=== PATIENT | male | born 1955 | race Caucasian/White ===

== ENCOUNTER 2017-10-05 20:41 | Observation (INO) | payer OTHER ==
[2017-10-05 21:17] LABS: #Basophils 0.1 thou/uL (0.0-0.2); #Eosinphils 0.4 thou/uL (0.0-0.7); #Lymphocytes 2.7 thou/uL (1.20-3.40); #Monocytes 0.7 thou/uL (0.11-0.59); #Neutrophils 6.9 thou/uL (1.40-6.50); %Basophils 0.8 % (0.0-1.0); %Eosinophils 3.3 % (0.0-10.0); %Monocytes 6.3 % (0.0-10.0); %Neutrophils 64.5 % (42.0-75.0); Hemoglobin 13.1 g/dL (14.0-18.0); Mean Corpuscular HGB CONC 34.6 g/dL (32.0-36.0); Mean Corpuscular Hemoglobin 32.4 pg (27.0-31.0); Mean Corpuscular Volume 93.6 fl (80.0-94.0); Mean Platelet Volume 8.7 fL (7.4-10.4); Platelet Count 197 thou/uL (130-400); RBC Distribution Width 12.2 % (11.5-14.5); Red Blood Cell (RBC) Count 4.03 mill/uL (4.70-6.10); White Blood Cell (WBC) Count 10.7 thou/uL (4.8-10.8)
[2017-10-05 21:23] LABS: INR-International Normal Ratio 1.1; PTT 24.6 SEC (22.9-36.1); Prothrombin Time 13.9 SEC (12.0-14.7)
[2017-10-05 21:41] LABS: Anion Gap 12 mmol/L (10-20); BUN (Urea Nitrogen) 15 mg/dL (8.4-25.7); Calc. Creatinine Clearance 0 mL/min (70-130); Calcium 9.1 mg/dL (7.8-10.44); Carbon Dioxide 23 mmol/L (23-31); Chloride 109 mmol/L (98-107); Estimated GFR-MDRD 70; Glucose 133 mg/dL (80-115); Sodium 140 mmol/L (136-145)
[2017-10-05] MEDS ORDERED: Morphine 4 MG/ML VIAL ONE (22:18)
--- NOTE | 2017-10-05 22:46 | RAD ---
RADIOGRAPH LEFT FOOT 3 VIEWS: Date: 10/05/17 Time: 9:49 p.m. HISTORY: 62-year-old male status post industrial accident with traumatic injury to the foot. FINDINGS: Comminuted fracture of first proximal phalanx, with significant displacement. Mild displacement of ob lique fracture at medial base of second proximal phalanx. Transverse fracture of neck of second proxi mal phalanx, with inferior displacement. Nondisplaced oblique fracture at medial base of the third pr oximal phalanx. Comminuted, significantly displaced fracture, with intra-articular component, of thir d middle phalanx, with widening of the third PIP joint space. Fracture of fourth middle phalanx. Over lying bandages obscure fine bony detail, and there may be additional fractures that are poorly visual ized. IMPRESSION: Multiple acute, traumatic, displaced fractures of proximal and middle phalanges of multiple left toes . POS: BILL
--- NOTE | 2017-10-06 00:19 | HP ---
REQUESTING PHYSICIAN: Princess Gillespie MD ATTENDING SURGEON: Suresh Mccarty MD CONSULTATIONS: Orthopedics, Dr. Morales. 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 The patient was wearing steel-toed boots, but unfortunately the steel toe was crushed and caused significant injury to his toes. The patient was brought to the emergency department, evaluated, examined, and noted to have left foot near forefoot amputation, which time we were asked to evaluate the patient for admission and obtain orthopedic consultation. ALLERGIES: None. CURRENT MEDICATIONS: Carvedilol, sertraline, naproxen, Brilinta, lisinopril, omeprazole, isosorbide dinitrate. PAST MEDICAL HISTORY: Hypertension, depression. PAST SURGICAL HISTORY: Cardiac stent x1, open reduction internal fixation of right forearm fracture. SOCIAL HISTORY: The patient currently dips tobacco. Denies smoking tobacco. Has not had alcohol in over 5 years. 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 FAMILY MEDICAL HISTORY: Significant for hypertension, coronary artery disease. REVIEW OF SYSTEMS: Ten-point review of systems is negative unless otherwise stated. PHYSICAL EXAMINATION: GENERAL: Vital Signs: BP 139/73, Pulse 69, Respirations 20, Temperature 97.9. The patient is resting comfortably in the emergency room bed. He is alert and oriented x3. Mertens coma scale is 15. HEENT: Unremarkable. Head is normocephalic, atraumatic. Eyes, extraocular motion intact. PERRLA bilaterally. Ears are atraumatic without discharge. Nose is atraumatic without discharge. Oropharynx is clear. NECK: Nontender. Trachea is midline. No JVD. CHEST: Clear to auscultation with good inspiratory and expiratory effort. HEART: Regular rate and rhythm. ABDOMEN: Soft, flat, nontender with positive bowel sounds. PELVIS: Stable. EXTREMITIES: Bilateral upper extremities are neurovascularly intact, showed full active range of motion. No evidence of trauma. Right lower extremity also shows no evidence of trauma and is neurovascularly intact. Left lower extremity is currently bandaged of the foot. The patient has posterior tibial and dorsalis pedis pulses. Due to the bleeding from the patient's antiplatelet , his dressing was not taken down, but the emergency room physician describes partial amputations of the second and third digits, deformity of the great toe. BACK: Atraumatic and nontender. LABORATORY FINDINGS: White blood cell count 10.7, hemoglobin 13.1, hematocrit 37.7, platelets 197. Sodium 140, potassium 4, chloride 109, CO2 of 23, BUN 15, creatinine 1.07, glucose 133. PTT 25, PT 14, INR 1.1. RADIOGRAPHIC REPORT: Left foot shows comminuted and displaced fractures of all toes and significant soft tissue injury. ASSESSMENT: 1. Status post partial amputations of multiple left toes. 2. Pain secondary to acute trauma. 3. History of antiplatelet use. 4. History of hypertension. 5. Hyperglycemia. PLAN: Plan will be to admit the patient to the surgical floor; make him n.p.o. after midnight; pain control; blood pressure control; glucose control; pulmonary toilet; gastritis and mechanical DVT prophylaxis; antibiotics per ortho, 2 grams of Ancef q.8 hours. The patient is up-to-date on his tetanus. He just received that within the last 90 days for a laceration. The evaluation , examination, radiographic and laboratory findings were discussed with Dr. Mccarty and with Dr. Morales, who will take the patient to the operating room tomorrow. SISSY
[2017-10-06] MEDS ORDERED: HYDROcodone/Acetaminophen 10/325 mg Tablet PO PRN ×2 (00:22)
[2017-10-06] MEDS ORDERED: Morphine 5 MG/ML SYRINGE IVP PRN ×2 (00:22)
[2017-10-06] MEDS ORDERED: Carvedilol 3.125 MG TAB PO SCH (00:22)
[2017-10-06] MEDS ORDERED: Ondansetron HCl/PF 4 MG/2 ML Vial IVP PRN ×2 (00:22→15:54)
[2017-10-06] MEDS ORDERED: Dextrose 50% Abboject 50 ML SYRINGE SLOW IVP PRN (00:22)
[2017-10-06] MEDS ORDERED: Ondansetron ODT 4 MG TAB PO PRN (00:22)
[2017-10-06] MEDS ORDERED: hydrALAZINE 20 MG/ML VIAL SLOW IVP PRN (00:22)
[2017-10-06] MEDS ORDERED: Dextrose 5% in Water 1,000 ML IV PRN (00:22)
[2017-10-06] MEDS ORDERED: Ketorolac Tromethamine 30 MG/ML VIAL IVP SCH (00:45)
[2017-10-06] MEDS: Sodium Chloride 0.9% 1,000 ML IV SCH ×3 (02:29→17:09)
[2017-10-06 02:38] VITALS: BMI 31.5
[2017-10-06 04:22] LABS: #Eosinphils 0.3 thou/uL (0.0-0.7); #Lymphocytes 3.2 thou/uL (1.20-3.40); #Monocytes 0.7 thou/uL (0.11-0.59); #Neutrophils 6.2 thou/uL (1.40-6.50); %Basophils 0.4 % (0.0-1.0); %Eosinophils 2.9 % (0.0-10.0); %Lymphocytes 30.4 % (21.0-51.0); %Monocytes 7.1 % (0.0-10.0); %Neutrophils 59.1 % (42.0-75.0); Hemoglobin 11.8 g/dL (14.0-18.0); Mean Corpuscular HGB CONC 34.7 g/dL (32.0-36.0); Mean Corpuscular Hemoglobin 32.9 pg (27.0-31.0); Mean Corpuscular Volume 94.8 fl (80.0-94.0); Mean Platelet Volume 8.7 fL (7.4-10.4); Platelet Count 169 thou/uL (130-400); RBC Distribution Width 12.3 % (11.5-14.5); Red Blood Cell (RBC) Count 3.58 mill/uL (4.70-6.10); White Blood Cell (WBC) Count 10.4 thou/uL (4.8-10.8)
[2017-10-06 04:29] LABS: Anion Gap 11 mmol/L (10-20); BUN (Urea Nitrogen) 16 mg/dL (8.4-25.7); Calc. Creatinine Clearance 95 mL/min (70-130); Calcium 8.7 mg/dL (7.8-10.44); Carbon Dioxide 26 mmol/L (23-31); Chloride 109 mmol/L (98-107); Estimated GFR-MDRD 66; Glucose 125 mg/dL (80-115); Potassium 4.4 mmol/L (3.5-5.1); Sodium 142 mmol/L (136-145)
[2017-10-06] MEDS: Ketorolac Tromethamine 30 MG/ML VIAL IVP SCH ×3 (06:37→17:12)
[2017-10-06] MEDS: CEFAZOLIN/Water 2 GM/20 ML SYRINGE SLOW IVP SCH ×3 (06:38→21:06)
[2017-10-06] MEDS: Famotidine 20 MG TAB PO SCH ×2 (08:51→21:05)
[2017-10-06] MEDS: Carvedilol 3.125 MG TAB PO SCH ×3 (08:51→21:11)
[2017-10-06] MEDS ORDERED: CEFAZOLIN/Water 2 GM/20 ML SYRINGE SLOW IVP SCH (09:15)
[2017-10-06] MEDS ORDERED: Sodium Chloride 0.9% 500 ML IVPB SCH (09:15)
--- NOTE | 2017-10-06 09:49 | CON ---
DATE OF CONSULTATION: 10/06/2017 REQUESTING PHYSICIAN: Dr. Mccarty CONSULTING PHYSICIAN: Dr. Morales REASON FOR CONSULTATION: Left foot traumatic industrial crush injury. 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 He was wearing steel toed boots at the time of the injury. He was brought to the [facility] for further evaluation. Unfortunately, the steel toe was crushed and caused significant injury to his toes. He was noted to have a near ray amputation. We have been consulted for this reason. ALLERGIES: No known drug allergies. CURRENT MEDICATIONS: Carvedilol, sertraline, Naprosyn, Brilinta, lisinopril, omeprazole, and isosorbide dinitrate. PAST MEDICAL HISTORY: Hypertension and depression. PAST SURGICAL HISTORY: Cardiac stent x1, open reduction internal fixation of right forearm fracture, and partial fingertip amputation to the right hand fifth digit. SOCIAL HISTORY: The patient currently dips tobacco. Denies smoking tobacco. He has not had alcohol in multiple years. 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 The patient lives at home with his and dogs. FAMILY HISTORY: Noncontributory. REVIEW OF SYSTEMS: Ten point review of systems otherwise negative except for stated above. PHYSICAL EXAMINATION: VITAL SIGNS: Temperature of 97.6, pulse of 67, respiratory rate of 14, blood pressure 146/90. GENERAL: The patient is awake and alert. He is lying comfortably in his bed on [place] floor. He is awake, alert, and oriented x3. No acute distress. HEENT: Normocephalic, atraumatic. NECK: Supple. LUNGS: Nonlabored breathing. EXTREMITIES: The patient has a wrap present to his left foot with an overlying Marcus bandage. This appears saturated. Ankle and lower leg unaffected. No signs of swelling or skin injury. The patient has full range of motion in his ankle and his knee. Remainder of the extremity exam is otherwise unremarkable. No other injuries are noted. NEUROLOGIC: No focal deficits. LABORATORY FINDINGS: White blood cell count of 10.7, hemoglobin 13.1, hematocrit 37.7, platelets 197. RADIOGRAPHIC FINDINGS: Including x-rays of the left foot which were reviewed by me shows a comminution and displaced multiple fractures of all toes and significant soft tissue injury. ASSESSMENT: Status post traumatic injury to the left foot with multiple displaced and comminuted fractures and partial amputations. PLAN: Radiographic findings and plan of care discussed with the patient today at bedside. He has multiple injuries to what appears to be all digits of the left foot. Radiographic findings and plan of care were discussed at length with Dr. Morales as well. We plan to take the patient to the operating room this afternoon for emergent incision and drainage with washout including salvage of viable tissue. The patient may undergo percutaneous pinning versus ORIF versus amputation. He verbalized understanding of this. Risks, benefits, and alternatives were also discussed at length. We will obtain consent. All questions have been answered. We will proceed with surgery this afternoon. SISSY
[2017-10-06] MEDS ORDERED: Midazolam HCl 2 mg/2 ml Vial ONE (13:34)
[2017-10-06] MEDS ORDERED: Fentanyl 250 MCG/5 ML VIAL ONE (13:34)
[2017-10-06] MEDS ORDERED: Neomycin-Polymyxin 1 ML AMP ONE (13:36)
[2017-10-06] MEDS ORDERED: CEFAZOLIN/Water 2 GM/20 ML SYRINGE ONE (13:51)
[2017-10-06] MEDS ORDERED: Ondansetron HCl/PF 4 MG/2 ML Vial ONE (15:15)
[2017-10-06] MEDS ORDERED: Propofol 200 MG/20 ML VIAL ONE (15:15)
[2017-10-06] MEDS ORDERED: Lidocaine 1% PF 5 ML VIAL ONE (15:15)
[2017-10-06] MEDS ORDERED: Ketorolac Tromethamine 30 MG/ML VIAL ONE (15:15)
[2017-10-06] MEDS ORDERED: Glycopyrrolate 0.2 MG/ML 5 ML SYRINGE ONE (15:15)
--- NOTE | 2017-10-06 15:48 | OP ---
DATE OF PROCEDURE: 10/06/2017 OPERATION: Left foot second and third toe amputation, percutaneous pin fixation with open reduction of first proximal phalanx fracture, wound closure, left foot. PREOPERATIVE DIAGNOSES: Left foot crush injury with multiple phalanx fractures, open wounds nonviabl e second and third toes, fracture of the first proximal phalanx. POSTOPERATIVE DIAGNOSES: Left foot crush injury with multiple phalanx fractures, open wounds nonviab le second and third toes, fracture of the first proximal phalanx. COMPLICATIONS: None. ESTIMATED BLOOD LOSS: Minimal. SURGEON: Jordin Morales M.D. ANESTHESIA: General. WATCH AND CLOCK MAKER AND REPAIRER: Cheikh Harrison PA-C. INDICATIONS: Mr. Driscoll is a 62-year-old male who crushed his forefoot with a steel rail. He was i ndicated for surgery to eradicate contamination and hopefully prevent infection. We also planned to reduce his first toe fracture as well as amputate the second and third toes because they are nonviabl e. He is aware of risks and benefits. He is aware of prolonged recovery process. He wants to proce ed with the operation. DESCRIPTION OF PROCEDURE: Mr. Driscoll was identified in the preoperative holding area. His correct extremity was marked. He was carried to the operating room. He was positioned supine. General anes thesia was induced. A multidisciplinary timeout was performed. The left foot was prepped and draped in sterile fashion. We began the procedure with evaluation and exploration of the wounds. We removed significant hematom a tissue. We thoroughly irrigated with copious lavage. We trimmed the skin edges. We determined th at the second and third toes were nonviable. They were dusky in appearance and there were no neurova scular structures intact to these toes. These were amputated at the MTP joint. At this point, we ev aluated the proximal phalanx of the great toe. This was reduced with a reduction clamp. We then kerrie deb a 0.062 K-wire from the distal aspect of the toe down through the MTP joint to reduce the toe and hold it in its anatomic position, took x-ray images confirming this. Again, we thoroughly irrigated with copious lavage. We performed a final excisional debridement using a knife. We then closed wit h nylon sutures in interrupted fashion. All wounds were closed as well as the flap near the amputati ons. At this point, we placed a sterile dressing, which was well padded in a splint. The patient was take n to the recovery room in good condition without complication. IMPLANTS: A single K-wire was used.
[2017-10-06] MEDS ORDERED: Meperidine HCl/PF 25 MG/ML VIAL SLOW IVP PRN (15:54)
[2017-10-06] MEDS ORDERED: HYDROmorphone 2 MG/ML VIAL SLOW IVP PRN (15:54)
[2017-10-06] MEDS ORDERED: Promethazine HCl 25 MG/ML VIAL SLOW IVP PRN (15:54)
[2017-10-06] MEDS ORDERED: Promethazine HCl 25 MG/ML VIAL IM PRN (15:54)
[2017-10-06] MEDS ORDERED: Morphine Sulfate 2 MG/ML SYRINGE SLOW IVP PRN (15:54)
--- NOTE | 2017-10-06 21:15 | PRG ---
DATE OF SERVICE: 10/06/2017 ATTENDING PHYSICIAN: Dr. Carlos Mesa. SUBJECTIVE: Mr. 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 He had been wearing steel-toe d boots, but the steel-toed was crushed and caused a significant injury to his toes. He was found to have a crush injury to his left foot with multiple phalanx fractures, open wounds with possible nonv iable toes. He was admitted by trauma services with Orthopedic Surgery consultation. He is schedule d to go to the OR today with Dr. Jordin Morales. The patient is currently stable on the [facility] floor. His left foot is dressed and does appear to be bleeding somewhat. OBJECTIVE: VITAL SIGNS: Blood pressure 146/90, pulse 67, temperature 97.6, respirations 14, O2 sat 96% on room air. GENERAL APPEARANCE: The patient is a middle-aged adult male, in no acute distress. HEENT: Normocephalic and atraumatic. RESPIRATORY: His breath sounds are clear to auscultation bilaterally with normal effort. CARDIOVASCULAR: He has a regular rate and rhythm with no murmurs, gallops or rubs. ABDOMEN: Soft, flat, nontender with normal bowel sounds. EXTREMITIES: He has a dressing in place on his left foot. There is a moderate amount of sanguineous drainage from his wound. LABORATORY DATA: Hematology: WBC is 10.4, hemoglobin 11.8, hematocrit 33.9, platelets 169. Cardiac Cath Technician ry: Sodium 142, potassium 4.4, chloride 109, bicarbonate 26, BUN 16, creatinine 1.12, glucose 125, c alcium 8.7. CK 121. IMAGING: There are no images to review today. ASSESSMENT: 1. Crush injury to left foot with multiple phalanx fractures and a partial amputation of several lef t toes. 2. Acute traumatic pain. 3. History of hypertension, present on admission. 4. History of antiplatelet use. 5. History of hyperglycemia. PLAN: 1. Patient will go to the OR today with Dr. Jordin Morales. 2. Postoperatively, we will initiate a gastritis prophylaxis and pulmonary toileting. 3. Optimize pain control. 4. Antibiotics per Orthopedic Surgery recommendations. 5. Patient will need help mobilizing with PT and OT. This patient was seen and examined along with Dr. Carlos Msea who agrees with the assessment and pl an.
[2017-10-06] MEDS ORDERED: Cyclobenzaprine 10 MG TAB PO PRN (22:01)
--- NOTE | 2017-10-06 22:19 | PRG ---
DATE OF SERVICE: 10/06/2017 SUBJECTIVE: The patient is hospital day 2, postop day 0 from blunt injury to his left foot. The pat ient underwent irrigation and debridement and amputation of his second and third left toes today in a ddition to percutaneous pinning of the great toe. The patient tolerated this procedure well and is c urrently on the surgical floor. He is tolerating a diet. His pain is controlled. Denies any nausea . OBJECTIVE: VITAL SIGNS: Temperature is 98.4, heart rate 69, blood pressure 122/73, respirations 18, oxygen satu ration 97% on room air. GENERAL: Patient is alert and oriented x3. Higbee coma scale is 15. RESPIRATIONS: Nonlabored. EXTREMITIES: Postoperative dressing is clean, dry, and intact. The patient is neurovascularly intac t in all extremities. ASSESSMENT AND PLAN: 1. Crush injury to left foot. 2. Status post percutaneous pinning of left great toe, amputation of second and third toes of left f oot. PLAN: Will be to continue pain management. Supportive care, physical, and occupational therapy, and possibly home tomorrow if the patient progresses and his pain is controlled on p.o. medications.
[2017-10-07] MEDS: Ketorolac Tromethamine 30 MG/ML VIAL IVP SCH ×3 (01:05→12:08)
[2017-10-07] MEDS: Sodium Chloride 0.9% 1,000 ML IV SCH ×2 (02:53→12:21)
[2017-10-07] MEDS: CEFAZOLIN/Water 2 GM/20 ML SYRINGE SLOW IVP SCH ×2 (05:56→15:04)
[2017-10-07] MEDS: Carvedilol 3.125 MG TAB PO SCH (08:22)
[2017-10-07] MEDS: Famotidine 20 MG TAB PO SCH (08:22)
[2017-10-07] MEDS ORDERED: Lisinopril 10 MG TAB PO SCH (09:00)
[2017-10-07 09:02] LABS: #Eosinphils 0.4 thou/uL (0.0-0.7); #Monocytes 0.5 thou/uL (0.11-0.59); #Neutrophils 5.8 thou/uL (1.40-6.50); %Basophils 0.5 % (0.0-1.0); %Eosinophils 4.4 % (0.0-10.0); %Lymphocytes 23.2 % (21.0-51.0); %Monocytes 5.5 % (0.0-10.0); %Neutrophils 66.5 % (42.0-75.0); Hemoglobin 10.4 g/dL (14.0-18.0); Mean Corpuscular HGB CONC 34.5 g/dL (32.0-36.0); Mean Corpuscular Hemoglobin 32.8 pg (27.0-31.0); Mean Corpuscular Volume 94.9 fl (80.0-94.0); Mean Platelet Volume 8.7 fL (7.4-10.4); Platelet Count 156 thou/uL (130-400); RBC Distribution Width 12.2 % (11.5-14.5); Red Blood Cell (RBC) Count 3.16 mill/uL (4.70-6.10); White Blood Cell (WBC) Count 8.7 thou/uL (4.8-10.8)
[2017-10-07 09:22] LABS: Anion Gap 11 mmol/L (10-20); BUN (Urea Nitrogen) 13 mg/dL (8.4-25.7); Calc. Creatinine Clearance 97 mL/min (70-130); Calcium 8.7 mg/dL (7.8-10.44); Carbon Dioxide 25 mmol/L (23-31); Chloride 105 mmol/L (98-107); Estimated GFR-MDRD 68; Glucose 193 mg/dL (80-115); Magnesium 1.9 mg/dL (1.6-2.6); Phosphorus 3.4 mg/dL (2.3-4.7); Sodium 137 mmol/L (136-145)
[2017-10-07] MEDS ORDERED: traMADol HCl 50 MG TAB PO PRN (10:25)
[2017-10-07] MEDS ORDERED: traMADol HCl 50 MG TAB PO SCH (10:30)
[2017-10-07] MEDS ORDERED: Acetaminophen 500 MG TAB PO SCH (10:30)
[2017-10-07 11:56] VITALS: BP 145/74; TEMP 98.5
[2017-10-07] MEDS ORDERED: Ibuprofen 600 MG TAB PO PRN (12:12)
--- NOTE | 2017-10-07 15:09 | RAD ---
TWO INTRAOPERATIVE IMAGES OF THE LEFT TOES: 10/06/2017 HISTORY: Trauma. Surgery. FINDINGS: Two intraoperative images of the left toes demonstrate amputation of the second and third toes, at th e level of the metatarsophalangeal joints. There is a percutaneous pin traversing the distal phalanx , proximal phalanx, and head of the metatarsal, at the level of the great toe. There is an obliquely oriented, comminuted fracture involving the first proximal phalanx. IMPRESSION: Intraoperative imaging, as above. POS: ROSARIO
--- NOTE | 2017-10-08 11:57 | EKG ---
Test Reason : Blood Pressure : / mmHG Vent. Rate : 074 BPM Atrial Rate : 074 BPM P-R Int : 178 ms QRS Dur : 094 ms QT Int : 400 ms P-R-T Axes : 046 -11 019 degrees QTc Int : 444 ms Normal sinus rhythm Normal ECG Confirmed by THA MAGUIRE M.D. ([id number]), commercial production editor JOEL DESRI ([id number]) on 10/08/2017 11:56:18 AM Referred By: Confirmed By:THA MAGUIRE M.D.
--- NOTE | 2017-10-08 14:33 | DIS ---
DATE OF ADMISSION: 10/06/2017 DATE OF DISCHARGE: 10/07/2017 ADMITTING PHYSICIAN: Dr. Mccarty. DISCHARGING PHYSICIAN: Dr. Carlos Mesa. ADMISSION DIAGNOSES: 1. Left foot crush injuries with multiple open fractures of left toes. 2. Acute traumatic pain. 3. History of antiplatelet use. 4. History of hypertension. 5. Hyperglycemia. DISCHARGE DIAGNOSES: 1. Left foot crush injuries with multiple open fractures of left toes. 2. Acute traumatic pain. 3. History of antiplatelet use. 4. History of hypertension. 5. Hyperglycemia. PROCEDURES PERFORMED: Left foot second and third toe amputation. Percutaneous pin fixation with ope n reduction of the proximal first phalanx fracture. Wound closure of left foot. HOSPITAL COURSE: Mr. 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 Patient was wearing steel-toed nguyễn ts; however, the railroad rail crushed the steel in the boot causing significant damage to his left f oot including near amputation of several left toes. He was taken to the operating room on 10/06/[address] Jordin Morales, where he underwent amputation of his left second and third toes as w ell as percutaneous pin fixation of his left first toe. The patient was thereafter transferred to [facility] surgical floor, where he remained in good condition throughout the rest of his stay. He was discha rged home in stable condition on 10/07/2017. DISCHARGE MEDICATIONS: Include Tylenol, Advil, tramadol, and hydrocodone. Activity INSTRUCTIONS: Patient was discharged with instructions for heel weightbearing as tolerated on his left lower extremity. NOURISHMENT INSTRUCTIONS: Patient on a regular diet. EQUIPMENT: Patient discharged with crutches. FOLLOWUP INSTRUCTIONS: Per discussion with Dr. Jordin Morales, patient agreed that he would f ollow up with his out of town primary care provider. Patient does not have a followup with Dr. Mesa ; however, Dr. Mesa remains available for questions or concerns. This patient was seen and examined along with Dr. Carlos Mesa, who agrees with this discharge plan.
== END 2017-10-07 15:02 | disposition home or self-care (01) ==
LOC: ERS 20:41 → T4-B 10-06 00:18 → SJJU 10-06 16:00
PROVIDERS: ADMIT Surgery; ATTEND Surgery
PROC: 0Y6S0Z0 Detachment at Left 2nd Toe, Complete, Open Approach (ICD-10-PCS; principal; 2017-10-06)
PROC: 0Y6U0Z0 Detachment at Left 3rd Toe, Complete, Open Approach (ICD-10-PCS; 2017-10-06)
PROC: 0QSR34Z Reposition Left Toe Phalanx with Internal Fixation Device, Percutaneous Approach (ICD-10-PCS; 2017-10-06)
DX: S97.82XA Crushing injury of left foot, initial encounter (principal); S92.412A Displaced fracture of proximal phalanx of left great toe, initial encounter for closed fracture; S98.222A Partial traumatic amputation of two or more left lesser toes, initial encounter; I10 Essential (primary) hypertension; F32.9 Major depressive disorder, single episode, unspecified; F17.290 Nicotine dependence, other tobacco product, uncomplicated; G89.11 Acute pain due to trauma; E78.5 Hyperlipidemia, unspecified; Z79.02 Long term (current) use of antithrombotics/antiplatelets; Z79.899 Other long term (current) drug therapy; W20.8XXA Other cause of strike by thrown, projected or falling object, initial encounter; Y99.0 Civilian activity done for income or pay
CPT/HCPCS: 36415; 36416; 51798; 76001; 80048; 82550; 83735; 84100; 85025; 85610; 85730; 93005; 96361; 96365; 96375; 96376; 99406; J2270; G0378; G0390; G8978-GP-CI; G8979-GP-CI; G8980-GP-CI; G8987-GO-CJ; G8988-GO-CI; J0690; J1885; J2001; J2250; J2405; J2704; J3010